=== PATIENT | female | born 1990 | race Hispanic/Latino ===

== ENCOUNTER 2017-12-30 06:38 | Emergency (ER) | payer OTHER ==
[2017-12-30 06:58] VITALS: TEMP 99.4; O2SAT 98
--- NOTE | 2017-12-30 07:05 | C.PDOC ---
History Of Present Illness 27 y/o female with Hx of chronic ear infection presents to ED for complaints of left ear canal pain that began 2 days ago. Denies any other physical complaints. Time Seen by Provider: 12/30/17 06:57 Chief Complaint (Nursing): ENT Problem History Per: Patient History/Exam Limitations: None Onset/Duration Of Symptoms: Days (2) Current Symptoms Are (Timing): Still Present Quality (Ear): Pain W/Touch Quality (Mouth/Throat): denies: Tenderness, Swelling, Redness, Drainage Symptoms Have Been: Continuous Anticoagulant/Antiplatlet Use?: No Recent Aspirin Use: Unknown Past Medical History Reviewed: Historical Data, Nursing Documentation, Vital Signs Vital Signs: Last Vital Signs Temp 99.4 F 12/30/17 07:13 Pulse 80 12/30/17 07:13 Resp 14 12/30/17 07:13 BP 130/70 12/30/17 07:13 Pulse Ox 98 12/30/17 07:04 - Medical History PMH: No Chronic Diseases Surgical History: Tonsillectomy Family History: States: No Known Family Hx - Social History Hx Alcohol Use: No Hx Substance Use: No - Immunization History Hx Tetanus Toxoid Vaccination: No Hx Influenza Vaccination: No Hx Pneumococcal Vaccination: No Review Of Systems Constitutional: Negative for: Fever, Chills ENT: Positive for: Ear Pain (Left ear ). Negative for: Nose Pain, Mouth Pain, Throat Pain Gastrointestinal: Negative for: Nausea, Vomiting, Abdominal Pain, Diarrhea Skin: Negative for: Rash Neurological: Negative for: Weakness, Numbness Physical Exam - Physical Exam Appears: Non-toxic, No Acute Distress Skin: Normal Color, Warm, Dry Head: Atraumatic, Normacephalic Eye(s): bilateral: Normal Inspection Ear(s): Left: Other (Left ear canal tenderness; consistent with otitis externa) Oral Mucosa: Moist Neck: Supple Chest: Symmetrical, No Tenderness Cardiovascular: Rhythm Regular, No Murmur Respiratory: Normal Breath Sounds, No Decreased Breath Sounds, No Rales, No Rhonchi, No Wheezing Extremity: Normal ROM, No Deformity Extremity: Bilateral: Atraumatic, Normal Color And Temperature, Normal ROM Neurological/Psych: Oriented x3 (Awake and alert), Normal Speech, Other (No focal deficits ) Gait: Steady ED Course And Treatment O2 Sat by Pulse Oximetry: 98 (RA) Pulse Ox Interpretation: Normal Medical Decision Making Medical Decision Making: 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 Daniels as needed. Prescriptions: Neomycin/Polymyxin/Hydrocort [Cortisporin Otic Soln] 3 drop OD TID #1 bottle Instructions: Outer Ear Infection (DC) Forms: [facility] ([place]) - Clinical Impression Clinical Impression: Ear pain, left - Scribe Statement The provider has reviewed the documentation as recorded by the Scribe Zoraida Hillman All medical record entries made by the Scribe were at my direction and personally dictated by me. I have reviewed the chart and agree that the record accurately reflects my personal performance of the history, physical exam, medical decision making, and the department course for this patient. I have also personally directed, reviewed, and agree with the discharge instructions and disposition.
[2017-12-30 07:14] VITALS: BP 130/70; PULSE 80; RESP 14
== END 2017-12-30 07:14 | disposition home or self-care (01) ==
LOC: C.ER 06:38
DX: H92.02 Otalgia, left ear (principal)